=== PATIENT | female | born 1945 | race Hispanic/Latino ===

== ENCOUNTER → 2017-12-14 | Outpatient (CLI) | payer MEDICARE | LOC: OIH 15:40 | PROVIDERS: ATTEND Family Medicine | DX: S99.922A Unspecified injury of left foot, initial encounter (principal); M19.072 Primary osteoarthritis, left ankle and foot; M77.52 Other enthesopathy of left foot and ankle; X58.XXXA Exposure to other specified factors, initial encounter; Y93.89 Activity, other specified; Y92.89 Other specified places as the place of occurrence of the external cause; Y99.8 Other external cause status | CPT/HCPCS: 73620 ==

== ENCOUNTER → 2018-10-05 | Outpatient (CLI) | payer MEDICARE ==
[2018-10-05 15:41] LABS: BASOPHILS % (AUTO) 0.7 % (0.0-5.0); HEMATOCRIT 36.8 % (36-48); LYMPHOCYTES % (AUTO) 25.9 % (21.0-51.0); MEAN CORPUSCULAR HEMOGLOBIN 31.7 pg (27.0-33.0); MEAN CORPUSCULAR HGB CONC 33.3 g/dL (32.0-36.0); MEAN CORPUSCULAR VOLUME 95.2 fL (79-99); MONOCYTES % (AUTO) 7.6 % (3.0-13.0); NEUTROPHILS % (AUTO) 63.8 % (40.0-77.0); PLATELET COUNT (AUTO) 196 K/uL (130-400); RED BLOOD CELL COUNT(AUTO) 3.87 MIL/uL (4.00-5.50); RED CELL DISTRIBUTION WIDTH 14.1 % (11.0-15.5); WHITE BLOOD COUNT (AUTO) 4.5 K/uL (4.8-10.8)
== END | disposition home or self-care (01) ==
LOC: OIH 09:58
PROVIDERS: ATTEND Family Medicine
DX: R50.9 Fever, unspecified (principal); Z68.41 Body mass index [BMI] 40.0-44.9, adult
CPT/HCPCS: 36415; 71046; 85025; 86000; 86157

== ENCOUNTER 2019-07-11 17:12 | Inpatient (IN) | payer MEDICARE ==
[~2019-07-11] VITALS: Ht 172.7 cm; Wt 108.2 kg
[2019-07-11 18:40] LABS: BASOPHILS % (AUTO) 1.1 % (0.0-5.0); EOSINOPHILS % (AUTO) 2.5 % (0.0-8.0); HEMATOCRIT 35.2 % (36-48); LYMPHOCYTES % (AUTO) 25.9 % (21.0-51.0); MEAN CORPUSCULAR HEMOGLOBIN 32.3 pg (27.0-33.0); MEAN CORPUSCULAR HGB CONC 33.8 g/dL (32.0-36.0); MEAN CORPUSCULAR VOLUME 95.6 fL (79-99); MONOCYTES % (AUTO) 8.4 % (3.0-13.0); NEUTROPHILS % (AUTO) 62.1 % (40.0-77.0); NUCLEATED RED BLOOD CELLS 0.1 % (0.0-0.19); PLATELET COUNT (AUTO) 136 K/uL (130-400); RED BLOOD CELL COUNT(AUTO) 3.68 MIL/uL (4.00-5.50); RED CELL DISTRIBUTION WIDTH 15.1 % (11.0-15.5); WHITE BLOOD COUNT (AUTO) 4.9 K/uL (4.8-10.8)
[2019-07-11 18:44] LABS: CREATININE 0.9 mg/dL (0.5-1.5); POTASSIUM 4.2 mmol/L (3.5-5.1)
[2019-07-11 18:45] LABS: APPEARANCE,URINE Clear (CLEAR); BILIRUBIN,URINE Negative (NEGATIVE); COLOR,URINE Dark Yellow (YELLOW); GLUCOSE, URINE (UA) Negative (NEGATIVE); KETONES,URINE Negative (NEGATIVE); LEUKOCYTE ESTERASE ,URINE Small (NEGATIVE); NITRATE,URINE Negative (NEGATIVE); OCCULT BLOOD,URINE Negative (NEGATIVE); PROTEIN,URINE Trace mg/dL (NEGATIVE)
[2019-07-11 18:57] LABS: BACTERIA,URINE Few /HPF (None Seen); MUCUS,URINE Few LPF (None Seen); RBC,URINE 0-1 /HPF (0-1)
[2019-07-11] MEDS ORDERED: DEXAMETHASONE SOD PHOSPHATE 10MG/ML 1ML VIAL ONE (19:01)
[2019-07-11 20:00] LABS: INR 0.92 (0.85-1.15); PARTIAL THROMBOPLASTIN TIME 24.8 SEC (26.3-35.5); PROTHROMBIN TIME 9.7 SEC (9.6-11.6)
[2019-07-12] VITALS (7 sets, daily range): BP systolic 177–195; BP diastolic 76–81
[2019-07-12] MEDS ORDERED: ACETAMINOPHEN 325 MG TAB PO PRN (00:30)
[2019-07-12] MEDS ORDERED: DEXAMETHASONE 4 MG TAB PO SCH (00:45)
[2019-07-12] MEDS: CEFTRIAXONE SODIUM 1 GM IVP SCH (04:00)
[2019-07-12] MEDS ORDERED: CEFTRIAXONE SODIUM 1 GM ONE (04:14)
[2019-07-12] MEDS ORDERED: DEXAMETHASONE SOD PHOSPHATE 4 MG/ML 1ML VIAL ONE (04:14)
[2019-07-12 05:23] LABS: BASOPHILS % (AUTO) 0.2 % (0.0-5.0); HEMATOCRIT 36.6 % (36-48); LYMPHOCYTES % (AUTO) 15.8 % (21.0-51.0); MEAN CORPUSCULAR HEMOGLOBIN 32.6 pg (27.0-33.0); MEAN CORPUSCULAR HGB CONC 34.2 g/dL (32.0-36.0); MEAN CORPUSCULAR VOLUME 95.3 fL (79-99); MONOCYTES % (AUTO) 1.6 % (3.0-13.0); NEUTROPHILS % (AUTO) 82.4 % (40.0-77.0); PLATELET COUNT (AUTO) 164 K/uL (130-400); RED BLOOD CELL COUNT(AUTO) 3.84 MIL/uL (4.00-5.50); RED CELL DISTRIBUTION WIDTH 14.8 % (11.0-15.5); WHITE BLOOD COUNT (AUTO) 4.4 K/uL (4.8-10.8)
[2019-07-12 05:42] LABS: ALBUMIN 3.3 g/dL (3.5-5.0); BILIRUBIN,TOTAL 0.3 mg/dL (0.2-1.0); CREATININE 0.9 mg/dL (0.5-1.5); POTASSIUM 3.7 mmol/L (3.5-5.1); TOTAL PROTEIN, SERUM 7.1 g/dL (6.0-8.3)
[2019-07-12] MEDS ORDERED: LISI-613 PO (06:27)
[2019-07-12] MEDS ORDERED: PARO30TA60 PO (06:27)
[2019-07-12] MEDS ORDERED: SORA200T PO (06:27)
[2019-07-12] MEDS ORDERED: DIPH25 PO (06:27)
[2019-07-12] MEDS ORDERED: ALLO100T PO (06:27)
[2019-07-12] MEDS ORDERED: BIOT10004 PO (06:27)
[2019-07-12] MEDS ORDERED: VITA1TAB39 PO (06:27)
[2019-07-12] MEDS ORDERED: AEC81 PO (06:27)
[2019-07-12] MEDS ORDERED: LEVO150T6 PO (06:27)
[2019-07-12] MEDS ORDERED: CYCL30DR OP (06:27)
[2019-07-12] MEDS ORDERED: d3 (06:27)
[2019-07-12] MEDS ORDERED: CARV3.12 PO (06:27)
[2019-07-12] MEDS ORDERED: ALIR75PE SQ (06:30)
[2019-07-12] MEDS: INSULIN HUMULIN R 100 UNIT/ML 3ML SQ SCH ×4 (06:55→20:36)
--- NOTE | 2019-07-12 07:45 | NUR ---
ALERT AND ORIENTED AT THIS TIME WITH NO ACUTE DISTRESS ON ROOM AIR, DENIES PAIN WITH ASSESSMENT. CURRENTLY NPO FOR PENDING MRI, NEW IV ACCESS WAS OBTAINED FOR PROCEDURE, TOLERATED IT WELL. PATIENT REPORTED FORGETFULNESS.
[2019-07-12] MEDS: DEXAMETHASONE SOD PHOSPHATE 4 MG/ML 1ML VIAL IVP SCH ×3 (07:47→21:50)
[2019-07-12] MEDS ORDERED: GADODIAMIDE 10 MMOL/20 ML VIAL IV ONE (08:09)
--- NOTE | 2019-07-12 11:26 | NUR ---
DR CLAYTON ROUNDED ON THE PATIENT AND DISCUSSED TREATMENT PLAN WITH HER AND HER SISTER AT THE BEDSIDE. NEW ORDER RECEIVED FOR ONCOLOGY AND PULMO CONSULT.
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
--- NOTE | 2019-07-12 20:17 | NUR ---
GROUP CARE WORKER Paged GROUP CARE WORKER MOTOR RACER,pt c/o of heartburn.Bp 182/79.
--- NOTE | 2019-07-12 20:37 | NUR ---
THIRD RAIL INSTALLER Paged LAURENCE SANDOVAL again,no call back.
--- NOTE | 2019-07-12 21:39 | NUR ---
CALLBACK Merlyn [facility] [employer] called back.Updated on pts status.
[2019-07-12] MEDS: ACETAMINOPHEN 325 MG TAB PO PRN (22:59)
[2019-07-12] MEDS: HYDRALAZINE HCL 20 MG/ML VIAL IM PRN (23:04)
--- NOTE | 2019-07-12 23:06 | NUR ---
HYDRALAZINE HYdralazine given for bp 187/81.
[2019-07-13] VITALS (7 sets, daily range): BP systolic 147–181; BP diastolic 67–77
[2019-07-13] MEDS: CEFTRIAXONE SODIUM 1 GM IVP SCH (04:00)
--- NOTE | 2019-07-13 04:00 | NUR ---
ACTIVITY Pt up ad abhijeet with a cane,jaspreet well.
[2019-07-13 05:10] LABS: HEMATOCRIT 36.3 % (36-48); MEAN CORPUSCULAR HEMOGLOBIN 32.4 pg (27.0-33.0); MEAN CORPUSCULAR HGB CONC 34.1 g/dL (32.0-36.0); MEAN CORPUSCULAR VOLUME 95.2 fL (79-99); PLATELET COUNT (AUTO) 203 K/uL (130-400); RED BLOOD CELL COUNT(AUTO) 3.81 MIL/uL (4.00-5.50); RED CELL DISTRIBUTION WIDTH 14.6 % (11.0-15.5); WHITE BLOOD COUNT (AUTO) 8.6 K/uL (4.8-10.8)
[2019-07-13 05:18] LABS: CREATININE 0.9 mg/dL (0.5-1.5); POTASSIUM 3.5 mmol/L (3.5-5.1)
[2019-07-13] MEDS: INSULIN HUMULIN R 100 UNIT/ML 3ML SQ SCH ×4 (06:16→21:10)
[2019-07-13] MEDS: DEXAMETHASONE SOD PHOSPHATE 4 MG/ML 1ML VIAL IVP SCH ×3 (06:17→21:06)
[2019-07-13] MEDS: LEVOTHYROXINE 150 MCG TABLET PO SCH (06:30)
--- NOTE | 2019-07-13 06:54 | NUR ---
SYNTHYROID Synthyroid not yet available,med request from pharmacy.
--- NOTE | 2019-07-13 08:18 | NUR ---
LATE ENTRY FOR 07/12/[address] Batres ROUNDED ON THE PATIENT AND MD WAS MADE AWARE OF ELEVATED BP 180'S. SHE SAID THAT SHE WILL CONSULT DR NAQVI FOR BRAIN MASS AND BP PARAMETERS.
[2019-07-13] MEDS: FAMOTIDINE/PF 20 MG/2 ML VIAL IV SCH ×2 (08:39→21:06)
[2019-07-13] MEDS: CARVEDILOL 3.125 MG TABLET PO SCH ×2 (08:41→21:08)
[2019-07-13 10:12] LABS: ABG BASE EXCESS -2.3 mmol/L (-2.0-3.0); ABG HCO3 20.6 mmol/L (21.0-28.0); ABG OXYGEN SATURATION 96.5 % (95.0-99.0); ABG PCO2 31 mmHg (32-45)
--- NOTE | 2019-07-13 12:45 | NUR ---
DR CLAYTON CAME IN AND DISCUSSED THE SURGICAL PLAN WITH THE PATIENT AND HER FAMILY. ORDERS WERE GIVEN FOR SURGERY TOMORROW.
[2019-07-13] MEDS ORDERED: COMPOUND IV MISC 1 EACH IVSOLN MISC PRN (13:00)
[2019-07-13] MEDS: LEVETIRACETAM 1,000 MG in SODIUM CHLORIDE 0.9% 100 ML IV SCH (13:19)
--- NOTE | 2019-07-13 15:00 | NUR ---
SUMMARY OF DC PLANNING PATIENT REQUESTING MPOA- DONE PER MIRZA, PATIENT ADVOCATE. PT REQUESTING DC PLANNING POST OP- [facility] CHOICE/[facility] DONE, ORDER REC'D FOR PRE OP EVAL- REP HERE, FACE SHEET AND CLINICAL SENT BY REP, PRIMARY RN AWARE, PATIENT MORE PEACEFUL NOW ABOUT THE DC PLANNING PROCESS PT LOST PHONE YESTERDAY- PER KAILEY PHONE FOUND IN [place], MAY BE PATIENTS, WILL FOLLOW SISTER LUC/PATIENT ASKING ABOUT DURABLE POWER OF NETWORKING SPECIALIST,WILL DISCUSS WITH BROTHER STEFANY WHEN ARRIVES, PATIENT FOR SURGERY IN AM, ADVISED BY CM THAT IS MORE COMPLICATED PROCESS, CM DO NOT ASSIST WITH THAT. PLS FOLLOW UP WITHGRAEMEUR NETWORKING SPECIALIST. VERBALIZED UNDERSTANDING Addendum: 07/13/19 at 1819 by JOHAN LAROSE RN CM Amended: Links added.
[2019-07-13] MEDS ORDERED: IOHEXOL-350 75 ML VIAL IV ONE (15:14)
--- NOTE | 2019-07-13 18:30 | NUR ---
CONSENT OBTAINED FOR SCHEDULED PROCEDURE AND WAS PLACED IN THE CHART.
[2019-07-13] MEDS: B COMPLEX WITH VITAMIN C PO SCH (21:00)
[2019-07-13] MEDS: LISINOPRIL 20 MG TABLET PO SCH (21:08)
[2019-07-14] VITALS (26 sets, daily range): BP systolic 101–178; BP diastolic 35–88
[2019-07-14] MEDS: LEVETIRACETAM 1,000 MG in SODIUM CHLORIDE 0.9% 100 ML IV SCH ×2 (01:17→14:32)
[2019-07-14] MEDS: HYDRALAZINE HCL 20 MG/ML VIAL IM PRN (01:18)
[2019-07-14] MEDS: CEFTRIAXONE SODIUM 1 GM IVP SCH (04:31)
[2019-07-14 05:27] LABS: HEMATOCRIT 37.6 % (36-48); MEAN CORPUSCULAR HEMOGLOBIN 32.7 pg (27.0-33.0); MEAN CORPUSCULAR HGB CONC 34.4 g/dL (32.0-36.0); MEAN CORPUSCULAR VOLUME 95.2 fL (79-99); PLATELET COUNT (AUTO) 193 K/uL (130-400); RED BLOOD CELL COUNT(AUTO) 3.95 MIL/uL (4.00-5.50); WHITE BLOOD COUNT (AUTO) 10.9 K/uL (4.8-10.8)
[2019-07-14 05:35] LABS: INR 0.95 (0.85-1.15); PARTIAL THROMBOPLASTIN TIME 23.2 SEC (26.3-35.5)
[2019-07-14 05:44] LABS: ALBUMIN 3.3 g/dL (3.5-5.0); BILIRUBIN,TOTAL 0.2 mg/dL (0.2-1.0); CREATININE 1.1 mg/dL (0.5-1.5); MAGNESIUM 1.8 mg/dL (1.80-2.40); POTASSIUM 3.8 mmol/L (3.5-5.1); TOTAL PROTEIN, SERUM 6.7 g/dL (6.0-8.3)
[2019-07-14] MEDS: LEVOTHYROXINE 150 MCG TABLET PO SCH (06:30)
[2019-07-14] MEDS: INSULIN HUMULIN R 100 UNIT/ML 3ML SQ SCH ×4 (06:37→21:00)
[2019-07-14] MEDS: DEXAMETHASONE SOD PHOSPHATE 4 MG/ML 1ML VIAL IVP SCH ×3 (06:37→21:37)
[2019-07-14] MEDS: CEFAZOLIN SODIUM 1 GM VIAL IVP ONE ×2 (08:00→11:15)
[2019-07-14] MEDS: FAMOTIDINE/PF 20 MG/2 ML VIAL IV SCH ×2 (09:00→21:37)
[2019-07-14] MEDS: CARVEDILOL 3.125 MG TABLET PO SCH ×2 (09:00→21:37)
[2019-07-14] MEDS ORDERED: POTASSIUM CHLORIDE 20 MEQ ERTAB PO PRN (09:30)
[2019-07-14] MEDS ORDERED: POTASSIUM CHLORIDE 10% ELIXIR 20 MEQ/15 ML UDCUP PO PRN (09:30)
[2019-07-14] MEDS ORDERED: SODIUM CHLORIDE 0.9% 1000ML 1,000 ML IV ONE (10:04)
--- NOTE | 2019-07-14 10:15 | NUR ---
TAKEN TO OR VIA BED IN STABLE CONDITION FOR SCHEDULED SURGERY. BELONGINGS ARE TAKEN BY FAMILY.
--- NOTE | 2019-07-14 10:16 | NUR ---
RECEIVED IN BED WITH EYES OPEN, PATIENT IS PLEASANT AND IN GOOD SPIRIT. DENIES PAIN WHEN ASKED; ON ROOM AIR WITH NO ACUTE RESPIRATORY DISTRESS PRESENT. EMOTIONAL/SPIRITUAL SUPPORT PROVIDED. AWARE OF THE SURGICAL PLAN SHE REPORTS THAT SHE IS READY.
[2019-07-14] MEDS ORDERED: CEFAZOLIN SODIUM 1 GM VIAL ONE (10:22)
[2019-07-14] MEDS ORDERED: DEXAMETHASONE SOD PHOSPHATE 10MG/ML 1ML VIAL ONE (10:34)
[2019-07-14] MEDS ORDERED: LIDOCAINE PF 2% 5ML ABBOJECT ONE (10:34)
[2019-07-14] MEDS ORDERED: PROPOFOL 10 MG/ML 20ML VIAL IV ONE (10:34)
[2019-07-14] MEDS ORDERED: MIDAZOLAM HCL 1 MG/ML 2ML VIAL ONE (10:34)
[2019-07-14] MEDS ORDERED: SUCCINYLCHOLINE 200MG/10ML SYR ONE (10:34)
[2019-07-14] MEDS ORDERED: ROCURONIUM 10MG/1ML SYR 10 MG/ML ML ONE (10:35)
[2019-07-14] MEDS ORDERED: FENTANYL CITRATE PF 50 MCG/1 ML 2ML VIAL ONE (10:35)
[2019-07-14] MEDS ORDERED: BACITRACIN 50,000 UNIT VIAL ONE ×2 (10:50→11:49)
[2019-07-14] MEDS ORDERED: THROMBIN-JMI 20000 UNIT KIT TP ONE (10:50)
[2019-07-14] MEDS ORDERED: MANNITOL 20% 500ML BAG 500 ML IV ONE (11:10)
[2019-07-14] MEDS: BUPIVACAINE/EPI/PF 0.25% 30ML VIAL IJ SCH ×2 (11:15→11:30)
[2019-07-14] MEDS ORDERED: PHENYLEPHRINE HCL 10 MG/ML 1ML VIAL IV ONE ×2 (11:15→12:55)
[2019-07-14] MEDS ORDERED: NEOSTIGMINE 5MG/5ML SYR IV ONE (12:55)
[2019-07-14] MEDS ORDERED: GLYCOPYRROLATE 1 MG/5 ML SYRINGE ONE (12:55)
[2019-07-14] MEDS ORDERED: ONDANSETRON HCL 4 MG/2 ML VIAL ONE (13:14)
[2019-07-14] MEDS ORDERED: KETOROLAC TROMETHAMINE 30MG/ML ONE (13:14)
[2019-07-14] MEDS ORDERED: MAGNESIUM 2GM PREMIX 50ML 50 ML IV PRN (13:30)
[2019-07-14] MEDS ORDERED: HYDRALAZINE HCL 20 MG/ML VIAL ONE (13:43)
--- NOTE | 2019-07-14 14:00 | NUR ---
ADMITTED FROM OR, S/P CRANIOTOMY, DRESSING TO RT OCCIPITAL AREA, DRY AND INTACT, AAOX3, UNLABORED RESPIRATIONS NOTED, O2 AT 2LITERS VIA NASAL CANNULA, O2 SAT AT 95%. HEMOVAC IN PLACE TO RT OCCIPITAL AREA, MINIMAL SANGUINOUS DRAINAGE NOTED TO COLLECTION CONTAINER, PARTIALLY COMPRESSED, PER DR CLAYTON.
[2019-07-14] MEDS ORDERED: POTASSIUM CHLORIDE 20MEQ/100ML 100 ML IV PRN (16:45)
[2019-07-14] MEDS ORDERED: LIDOCAINE HCL-MPF 1% 2ML VIAL IV PRN (16:45)
--- NOTE | 2019-07-14 20:00 | NUR ---
dressing to craniotomy site dry intact with hemovac in place. pt awake alert oriented. denies pain or discomfort. pt able to follow commands well.
[2019-07-14] MEDS: B COMPLEX WITH VITAMIN C PO SCH (21:00)
[2019-07-14] MEDS: LISINOPRIL 20 MG TABLET PO SCH (21:37)
[2019-07-15] VITALS (18 sets, daily range): BP systolic 106–166; BP diastolic 46–99
--- NOTE | 2019-07-15 | NUR ---
pt resting well. no new problems, pt with no voiced complaints.
[2019-07-15] MEDS: LEVETIRACETAM 1,000 MG in SODIUM CHLORIDE 0.9% 100 ML IV SCH ×3 (01:02→23:59)
[2019-07-15] MEDS: CEFTRIAXONE SODIUM 1 GM IVP SCH (03:49)
[2019-07-15 04:05] LABS: HEMATOCRIT 38.3 % (36-48); MEAN CORPUSCULAR HEMOGLOBIN 32.2 pg (27.0-33.0); MEAN CORPUSCULAR HGB CONC 33.6 g/dL (32.0-36.0); PLATELET COUNT (AUTO) 230 K/uL (130-400); RED BLOOD CELL COUNT(AUTO) 3.99 MIL/uL (4.00-5.50); RED CELL DISTRIBUTION WIDTH 15.4 % (11.0-15.5); WHITE BLOOD COUNT (AUTO) 13.6 K/uL (4.8-10.8)
[2019-07-15 04:25] LABS: MAGNESIUM 2.6 mg/dL (1.80-2.40); PHOSPHORUS 3.7 mg/dL (2.5-4.9); POTASSIUM 4.1 mmol/L (3.5-5.1)
[2019-07-15] MEDS: DEXAMETHASONE SOD PHOSPHATE 4 MG/ML 1ML VIAL IVP SCH ×3 (06:20→21:00)
[2019-07-15] MEDS: HYDRALAZINE HCL 20 MG/ML VIAL IM PRN (06:21)
[2019-07-15] MEDS: INSULIN HUMULIN R 100 UNIT/ML 3ML SQ SCH ×4 (06:29→20:58)
[2019-07-15] MEDS: LEVOTHYROXINE 150 MCG TABLET PO SCH (06:46)
[2019-07-15] MEDS: FAMOTIDINE/PF 20 MG/2 ML VIAL IV SCH ×2 (09:21→20:58)
[2019-07-15] MEDS: CARVEDILOL 3.125 MG TABLET PO SCH ×2 (09:21→20:59)
--- NOTE | 2019-07-15 10:00 | NUR ---
DYSPHAGIA EVAL COMPLETED. -S/S OF ASPIRATION. RECOMMEND REGULAR, THIN LIQUIDS; PILLS WHOLE WITH LIQUIDS. Addendum: 07/15/19 at 1144 by KOBI MCDONALD, [facility] Amended: Links added.
--- NOTE | 2019-07-15 11:00 | NUR ---
cm note met with patient and and brother, discussed dc plan , pt agreeable to acute rehab, and want [facility] rehab, referral faxed to [facility], pendin approval
--- NOTE | 2019-07-15 11:37 | NUR ---
COGNITIVE LINGUISTIC EVAL COMPLETED. WITHIN FUNCTIONAL LIMITS. Pt CURRENTLY AT BASELINE. Addendum: 07/15/19 at 1138 by KOBI MCDONALD, [facility] Amended: Links added.
[2019-07-15] MEDS ORDERED: DEXAMETHASONE SOD PHOSPHATE 4 MG/ML 1ML VIAL ONE (12:54)
--- NOTE | 2019-07-15 17:00 | NUR ---
cm note received call from freedom richard at [facility], states pt will probably have a bed ready for her thursday , states he will call in am with update.
[2019-07-15] MEDS: B COMPLEX WITH VITAMIN C PO SCH (19:56)
[2019-07-15] MEDS: LISINOPRIL 20 MG TABLET PO SCH (20:59)
[2019-07-16] VITALS: BP 177/70
[2019-07-16] MEDS: HYDRALAZINE HCL 20 MG/ML VIAL IM PRN
[2019-07-16 04:00] VITALS: BP 126/52
[2019-07-16] MEDS: LEVOTHYROXINE 150 MCG TABLET PO SCH (05:51)
[2019-07-16] MEDS: DEXAMETHASONE SOD PHOSPHATE 4 MG/ML 1ML VIAL IVP SCH (05:52)
[2019-07-16] MEDS: INSULIN HUMULIN R 100 UNIT/ML 3ML SQ SCH ×2 (06:01→11:30)
[2019-07-16 07:57] VITALS: BP 135/77
[2019-07-16] MEDS: FAMOTIDINE/PF 20 MG/2 ML VIAL IV SCH (08:38)
[2019-07-16] MEDS: DEXAMETHASONE 0.5 MG TAB PO SCH ×2 (08:38→12:42)
[2019-07-16] MEDS: CARVEDILOL 3.125 MG TABLET PO SCH (08:39)
[2019-07-16] MEDS: ACETAMINOPHEN 325 MG TAB PO PRN ×2 (08:46→12:51)
[2019-07-16 11:50] VITALS: BP 154/68
[2019-07-16] MEDS: LEVETIRACETAM 1,000 MG in SODIUM CHLORIDE 0.9% 100 ML IV SCH (12:40)
[2019-07-16] MEDS ORDERED: AMLO5TAB9 PO (12:55)
--- NOTE | 2019-07-16 15:25 | NUR ---
DISCHARGE DISCHARGE TEACHING DONE WITH PATIENT USING TEACHBACK METHOD, VERBALIZED UNDERSTANDING. NO NOTED SOB OR DISTRESS. DRESSING TO RIGHT SIDE OF FOREHEAD RIGHT AND INTACT. NO NEW PRESCRIPTIONS. DRESSING CHANGES TEACHING DONE WITH PATIENT, VERBALIZED UNDERSTANDING. IV REMOVED, CATH TIP INTACT. REPORT CALLED TO [facility]. PENDING SECOND TIME WORKER RIDE TO TRANSFER OUT VIA PRIVATE VEHICLE. BROTHER ON HIS WAY TO SECOND TIME WORKER PATIENT.
[2019-07-17] MEDS ORDERED: AMLODIPINE BESYLATE 5 MG TAB PO SCH (09:00)
[2019-07-19] MEDS ORDERED: ALIROCUMAB 75 MG SQ SCH (09:00)
== END 2019-07-16 16:04 | DRG 25 ==
LOC: EDH 17:12 → EDHIP 20:28 → 3BH 07-12 06:24 → 2CV 07-14 12:14 → 2CH 07-14 13:07 → 4BH 07-15 17:34
PROVIDERS: ADMIT Internal Medicine; ATTEND Internal Medicine
PROC: 00B00ZZ Excision of Brain, Open Approach (ICD-10-PCS; principal; 2019-07-14 11:30)
DX: D49.6 Neoplasm of unspecified behavior of brain (principal); G93.6 Cerebral edema; C78.00 Secondary malignant neoplasm of unspecified lung; C73 Malignant neoplasm of thyroid gland; E66.01 Morbid (severe) obesity due to excess calories; Z68.36 Body mass index [BMI] 36.0-36.9, adult; E78.2 Mixed hyperlipidemia; F41.9 Anxiety disorder, unspecified; E11.51 Type 2 diabetes mellitus with diabetic peripheral angiopathy without gangrene; E03.9 Hypothyroidism, unspecified; I11.9 Hypertensive heart disease without heart failure; M10.9 Gout, unspecified; Z72.0 Tobacco use; Z85.850 Personal history of malignant neoplasm of thyroid; Y92.89 Other specified places as the place of occurrence of the external cause; Y92.410 Unspecified street and highway as the place of occurrence of the external cause; V89.2XXA Person injured in unspecified motor-vehicle accident, traffic, initial encounter; Z92.21 Personal history of antineoplastic chemotherapy; Z91.018 Allergy to other foods
CPT/HCPCS: 36415; 36600; 70450; 70553; 71045; 71270; 76998; 80048; 80053; 81001; 82803; 82948; 83735; 84100; 85025; 85027; 85610; 85730; 87088; 88307; 92522; 92610; 94760; 97039; 99291; A4344; A9579; C1713; G0378; J0330; J0360; J0690; J0696; J1100; J1815; J1885; J1953; J2001; J2250; J2370; J2405; J2704; J2710; J3010; J3475; J3480; J3490; J7030; J7120; J8540; Q9967

== ENCOUNTER → 2019-08-08 | Outpatient (CLI) | payer MEDICARE ==
[~2019-08-08] MED LIST: AEC81 PO; ALIR75PE SQ; ALLO100T PO; AMLO5TAB9 PO; BIOT10004 PO; CARV3.12 PO; CYCL30DR OP; DIPH25 PO; LEVO150T6 PO; LISI-613 PO; PARO30TA60 PO; VITA1TAB39 PO
== END | disposition home or self-care (01) ==
LOC: SHCH 11:24
PROVIDERS: ATTEND Internal Medicine Cardiovascular Disease
DX: I65.23 Occlusion and stenosis of bilateral carotid arteries (principal)
CPT/HCPCS: 93880

== ENCOUNTER 2019-08-22 13:48 | Inpatient (IN) | payer MEDICARE ==
[~2019-08-22] VITALS: Ht 172.7 cm; Wt 109.9 kg
[2019-08-22 14:50] LABS: BASOPHILS % (AUTO) 0.3 % (0.0-5.0); EOSINOPHILS % (AUTO) 0.9 % (0.0-8.0); LYMPHOCYTES % (AUTO) 14.7 % (21.0-51.0); MEAN CORPUSCULAR HEMOGLOBIN 32.5 pg (27.0-33.0); MEAN CORPUSCULAR VOLUME 95.6 fL (79-99); MONOCYTES % (AUTO) 9.9 % (3.0-13.0); NEUTROPHILS % (AUTO) 74.2 % (40.0-77.0); NUCLEATED RED BLOOD CELLS 0.1 % (0.0-0.19); PLATELET COUNT (AUTO) 210 K/uL (130-400); RED BLOOD CELL COUNT(AUTO) 3.46 MIL/uL (4.00-5.50); RED CELL DISTRIBUTION WIDTH 14.1 % (11.0-15.5); WHITE BLOOD COUNT (AUTO) 5.4 K/uL (4.8-10.8)
[2019-08-22 15:04] LABS: CREATININE 0.9 mg/dL (0.5-1.5); POTASSIUM 3.9 mmol/L (3.5-5.1)
[2019-08-22 15:12] LABS: ALBUMIN 3.3 g/dL (3.5-5.0); BILIRUBIN,TOTAL 0.3 mg/dL (0.2-1.0)
[2019-08-22 15:20] LABS: INR 0.96 (0.85-1.15); PARTIAL THROMBOPLASTIN TIME 23.3 SEC (26.3-35.5); PROTHROMBIN TIME 9.9 SEC (9.6-11.6)
[2019-08-22 15:52] LABS: B-TYPE NATRIURETIC PEPTIDE 37 pg/mL (0-100)
[2019-08-22] MEDS ORDERED: DEXAMETHASONE SOD PHOSPHATE 10MG/ML 1ML VIAL ONE (16:27)
[2019-08-22] MEDS ORDERED: ONDANSETRON HCL 4 MG/2 ML VIAL ONE (16:27)
[2019-08-22] MEDS ORDERED: FOSPHENYTOIN SODIUM 500 MG/10ML VIAL IJ ONE (16:28)
[2019-08-22] MEDS ORDERED: SODIUM CHLORIDE 0.9% 100 ML IV ONE (16:28)
[2019-08-22] MEDS ORDERED: GADODIAMIDE 10 MMOL/20 ML VIAL IV ONE (16:35)
[2019-08-22] MEDS ORDERED: SODIUM CHLORIDE 0.9% 10 ML VIAL IVP PRN (17:45)
[2019-08-22 18:20] VITALS: BP 196/81
[2019-08-22 19:15] VITALS: BP 162/77
[2019-08-22] MEDS ORDERED: ESOM20CA31 PO (20:28)
[2019-08-22] MEDS ORDERED: CHOL500062 PO (20:28)
[2019-08-22] MEDS ORDERED: SORA200T PO ×2 (20:28)
[2019-08-22] MEDS ORDERED: LEVE1000 PO (20:28)
[2019-08-22 20:44] LABS: APPEARANCE,URINE Clear (CLEAR); BILIRUBIN,URINE Negative (NEGATIVE); COLOR,URINE Yellow (YELLOW); GLUCOSE, URINE (UA) Negative (NEGATIVE); KETONES,URINE Trace mg/dL (NEGATIVE); LEUKOCYTE ESTERASE ,URINE Negative (NEGATIVE); NITRATE,URINE Negative (NEGATIVE); OCCULT BLOOD,URINE Negative (NEGATIVE); PH,URINE 7.5 (5.0-8.0); PROTEIN,URINE Negative (NEGATIVE)
[2019-08-22] MEDS: PHENYTOIN SODIUM 100 MG ERCAP PO SCH (21:41)
[2019-08-22] MEDS: INSULIN R PO SS1 SQ SCH (21:48)
[2019-08-22] MEDS: DEXAMETHASONE SOD PHOSPHATE 4 MG/ML 1ML VIAL IVP SCH (22:06)
[2019-08-22 23:17] VITALS: BP 188/89
[2019-08-22] MEDS ORDERED: LISINOPRIL 20 MG TABLET ONE (23:48)
[2019-08-22] MEDS ORDERED: CARVEDILOL 3.125 MG TABLET PO ONE (23:48)
[2019-08-23 03:01] VITALS: BP 150/80
--- NOTE | 2019-08-23 03:20 | NUR ---
RECEIVED REPORT RECEIVED FROM LUIS TOM. TOOK OVER CARE OF PT FROM THIS TIME. PT IS FAIRLY ASLEEP. NO DISTRESS NOTED. KEPT RESTED AND COMFORTABLE.
[2019-08-23] MEDS: DEXAMETHASONE SOD PHOSPHATE 4 MG/ML 1ML VIAL IVP SCH (03:57)
[2019-08-23 05:35] LABS: HEMATOCRIT 35.2 % (36-48); MEAN CORPUSCULAR HEMOGLOBIN 32.8 pg (27.0-33.0); MEAN CORPUSCULAR HGB CONC 34.4 g/dL (32.0-36.0); MEAN CORPUSCULAR VOLUME 95.4 fL (79-99); PLATELET COUNT (AUTO) 222 K/uL (130-400); RED BLOOD CELL COUNT(AUTO) 3.69 MIL/uL (4.00-5.50); RED CELL DISTRIBUTION WIDTH 13.5 % (11.0-15.5); WHITE BLOOD COUNT (AUTO) 5.8 K/uL (4.8-10.8)
[2019-08-23 05:50] LABS: ALBUMIN 3.2 g/dL (3.5-5.0); BILIRUBIN,TOTAL 0.3 mg/dL (0.2-1.0); CREATININE 0.9 mg/dL (0.5-1.5); POTASSIUM 4.1 mmol/L (3.5-5.1); TOTAL PROTEIN, SERUM 7.1 g/dL (6.0-8.3)
[2019-08-23] MEDS: INSULIN R PO SS1 SQ SCH ×4 (05:58→20:39)
--- NOTE | 2019-08-23 06:11 | NUR ---
ROUNDS PT RESTING WELL, NO DISTRESS NOTED. NO CONCERNS VERBALIZED. KEPT COMFORTABLE. FOR MORE CARE.
--- NOTE | 2019-08-23 06:47 | NUR ---
MD DR POLANCO IN TO SEE PT. NEW ORDERS GIVEN, PLEASE REFER TO CPOE.
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
[2019-08-23 08:00] VITALS: BP 145/69
[2019-08-23] MEDS: **HM** VIT D3 5000 UNITS PO SCH (09:00)
--- NOTE | 2019-08-23 09:00 | NUR ---
NOTE DR FORREST MALDONADO IN A CONSULT. HE HAD PERFORMED CRANIOTOMY ON PATIENT IN JUL 14 2019. HE ORDERED TO CHANGE DECADRON TO PO 2MG EVERY [address] TO CONSULT [address] RICHARD. THERE IS AN ORDER FOR JOSE MANUEL TO COME SEE WELL. HE REVIEWED MRI AND CT SCANS. NO OTHER ORDERS GIVEN.
[2019-08-23] MEDS: CARVEDILOL 3.125 MG TABLET PO SCH ×2 (10:46→20:38)
[2019-08-23] MEDS: LEVOTHYROXINE 150 MCG TABLET PO SCH (10:47)
[2019-08-23] MEDS: PHENYTOIN SODIUM 100 MG ERCAP PO SCH ×3 (10:47→20:38)
[2019-08-23] MEDS: ASPIRIN 81 MG EC TAB PO SCH (10:47)
[2019-08-23] MEDS: LEVETIRACETAM 500 MG TABLET PO SCH ×2 (10:47→20:39)
[2019-08-23] MEDS: PANTOPRAZOLE SODIUM 40 MG TABLET.DR PO SCH (10:47)
[2019-08-23] MEDS: AMLODIPINE BESYLATE 5 MG TAB PO SCH (10:49)
--- NOTE | 2019-08-23 11:00 | NUR ---
INITIAL MET W PATIENT AND SISTER AT BEDSIDE PT KNOWN TO THIS CM FROM PREVIOUS ADMISSION. LIVES RUDY, NOW POST DX THE SIS TER IS CHECKING ON HER THROUGH THE DAY, WAS AMBULATORY AND CONTINENT PRIOR TO THE BRAIN SURGERY BUT NOW NEEDS A WLAKER AND A CANE AND IS MORE FORGETFUL, NOT TAKING MEDS LIKE SHE SHOULD DISCUSSED PLANS, FMAILY STATES THERE WAS A PROBLEM GETTING HTE MRI SCHEDULED- "INSURANCE WOULD NOT PAY' PT CALLED HER SUPPLEMENTAL INSURANCE AND MISUNDERSTOOD WHAT WAS TOLD TO HER- PRIMRY IS MEDICARE DISCHARGE DISPOSTION IS GRIM- NEED MPOA/DPOA AND PT NEEDS TO ACCEPT THAT TIME IS OF THE ESSENCE IN DECISION MAKING Addendum: 08/24/19 at 1510 by JOHAN LAROSE RN Amended: Links added.
[2019-08-23 11:29] VITALS: BP 139/56
[2019-08-23] MEDS: DEXAMETHASONE 4 MG TAB PO SCH ×2 (14:27→18:42)
--- NOTE | 2019-08-23 14:45 | NUR ---
PALLIATIVE CARE Sw and Kylee charge nurse met with pt and discussed palliative care consult. Pt is agreeable to meeting with Dr Huang and knowing what her options are down the road. Pt requesting meeting in am so brother Jamshid who MPOA can be present. Dr Huang notified and waiting on time he is available. Nurse Pastor aware of above..
[2019-08-23 16:00] VITALS: BP 134/57
--- NOTE | 2019-08-23 16:17 | NUR ---
Dr Huang at 8am Sw spoke to Dr Huang who can meet with pt and brother tomorrow at 8am. Sw spoke to pt and brother who will be here at that time.
[2019-08-23 19:15] VITALS: BP 128/55
[2019-08-23] MEDS: LISINOPRIL 20 MG TABLET PO SCH (20:38)
[2019-08-23] MEDS: ALLOPURINOL 100 MG TABLET PO SCH (20:38)
[2019-08-23] MEDS: PAROXETINE HCL 20 MG TABLET PO SCH (20:38)
[2019-08-23 23:03] VITALS: BP 146/68
[2019-08-24] MEDS: DEXAMETHASONE 4 MG TAB PO SCH ×4 (00:01→17:09)
[2019-08-24 03:24] VITALS: BP 161/60
[2019-08-24] MEDS: INSULIN R PO SS1 SQ SCH ×4 (06:32→21:00)
[2019-08-24 08:07] VITALS: BP 158/76
[2019-08-24] MEDS: **HM** VIT D3 5000 UNITS PO SCH (09:00)
--- NOTE | 2019-08-24 10:20 | NUR ---
Palliative Care Sw present when Dr Huang met with pt and her brother and sister. Pt alert and oriented and able to explain to Dr Huang medical hx. Dr Huang discussed current condition, showed pt and family results from MRI and explained options and strongly recommended to pt that she get her affairs in order and begin planning head, because she can not do treatment unless she has help, and is complaint with treatment. Family reports pt is very non compliant, is difficult to get her up and dressed to keep appts. "Do not start treatment unless you are all in". "You must have transportation in place and assistance with ADLS so that you can be ready when transportation gets there". Dr Huagn stressed the importance of her not missing any treatments once she starts them. "You are an adult and can make your own decisions, but there will be consequences that can make things way worse for you". Pt voiced understanding. Dr Huang also strongly recommended pt look into hiring help at home or moving into an assisted living facility where there is someone 25/05. Brother states pt refusing to complete POA. Dr Huang encouraged pt to complete POA and Will, nadeem while she is still able to, because she won't be able to if she waits till she needs it". Dr Huang explained hospice services as well, should treatment not work. Dr Huang educated on DNR , OOHDNR and DNI and informed pt that neither would be beneficial to pt with stage 4 cancer. Pt and family very appreciative of information and will move forward with treatment and begin planning for future care for pt.
[2019-08-24] MEDS: AMLODIPINE BESYLATE 5 MG TAB PO SCH (10:53)
[2019-08-24] MEDS: ASPIRIN 81 MG EC TAB PO SCH (10:53)
[2019-08-24] MEDS: NYSTATIN 100000 UNIT/ML 5ML UDCUP PO SCH ×4 (10:53→20:28)
[2019-08-24] MEDS: PANTOPRAZOLE SODIUM 40 MG TABLET.DR PO SCH (10:53)
[2019-08-24] MEDS: LEVOTHYROXINE 150 MCG TABLET PO SCH (10:53)
[2019-08-24] MEDS: LEVETIRACETAM 500 MG TABLET PO SCH ×2 (10:54→20:26)
[2019-08-24] MEDS: CARVEDILOL 3.125 MG TABLET PO SCH ×2 (10:54→20:28)
[2019-08-24] MEDS: PHENYTOIN SODIUM 100 MG ERCAP PO SCH ×3 (11:00→20:26)
[2019-08-24 11:16] VITALS: BP 129/61
[2019-08-24 16:11] VITALS: BP 130/56
[2019-08-24 20:00] VITALS: BP 132/55
[2019-08-24] MEDS: ALLOPURINOL 100 MG TABLET PO SCH (20:27)
[2019-08-24] MEDS: PAROXETINE HCL 20 MG TABLET PO SCH (20:27)
[2019-08-24] MEDS: LISINOPRIL 20 MG TABLET PO SCH (20:28)
[2019-08-24 23:21] VITALS: BP 125/56
[2019-08-25] MEDS: DEXAMETHASONE 4 MG TAB PO SCH ×4 (00:54→17:11)
[2019-08-25 03:46] VITALS: BP 136/63
[2019-08-25] MEDS: INSULIN R PO SS1 SQ SCH ×4 (05:50→21:00)
[2019-08-25 07:28] VITALS: BP 133/71
[2019-08-25] MEDS: **HM** VIT D3 5000 UNITS PO SCH (09:00)
[2019-08-25] MEDS: NYSTATIN 100000 UNIT/ML 5ML UDCUP PO SCH ×4 (09:45→20:58)
[2019-08-25] MEDS: PHENYTOIN SODIUM 100 MG ERCAP PO SCH ×3 (09:45→20:58)
[2019-08-25] MEDS: LEVETIRACETAM 500 MG TABLET PO SCH ×2 (09:45→20:57)
[2019-08-25] MEDS: PANTOPRAZOLE SODIUM 40 MG TABLET.DR PO SCH (09:46)
[2019-08-25] MEDS: CARVEDILOL 3.125 MG TABLET PO SCH ×2 (09:46→20:58)
[2019-08-25] MEDS: LEVOTHYROXINE 150 MCG TABLET PO SCH (09:46)
[2019-08-25] MEDS: ASPIRIN 81 MG EC TAB PO SCH (09:47)
[2019-08-25] MEDS: AMLODIPINE BESYLATE 5 MG TAB PO SCH (09:47)
[2019-08-25 11:35] VITALS: BP 132/64
[2019-08-25 16:43] VITALS: BP 150/67
--- NOTE | 2019-08-25 17:00 | NUR ---
SUMMARY OF DC PLANNING @1400 CALL TO [facility] ONCOLOGY TO [facility] RADIOLOGY [place]- MD/TECH ASK IF PT COULD COME THIS AFTERNOON BEFORE [address] POLANCO, SAID YES OK TO DISCHARGE- F/U NEXT WEEK. RELAYED ORDER TO PRIMARY RN CALL TO DR. RICHARD, [facility] CALL TO FAMILY- THEY SAID, NO, THEY DO NOT WANT TO TAKE PT TODAY, THEY WILL CALL [facility] AND [facility] OTHER ARRANGMENTS FOR HER RADIOLOGY APPT [facility] ASKING FOR INFO RE PLACEMENT AND ASKING FOR HOSP BED AND W/CHAIR [facility] REP AT BEDSIDE W PT AND FMAILY- RPOI REC FOR [facility], [facility] AND [facility] - W Addendum: 08/25/19 at 1948 by JOHAN LAROSE RN CM Amended: Links added.
[2019-08-25 19:17] VITALS: BP 133/57
--- NOTE | 2019-08-25 19:49 | NUR ---
DR POLANCO NEEDS TO SIGN THE DME RX'S IN THE MORNING! PLEASE ALERT MD TO DME SCRIPTS
[2019-08-25] MEDS: PAROXETINE HCL 20 MG TABLET PO SCH (20:56)
[2019-08-25] MEDS: LISINOPRIL 20 MG TABLET PO SCH (20:56)
[2019-08-25] MEDS: ALLOPURINOL 100 MG TABLET PO SCH (20:56)
[2019-08-25 23:49] VITALS: BP 145/59
[2019-08-26] MEDS: DEXAMETHASONE 4 MG TAB PO SCH ×4 (00:05→18:05)
[2019-08-26 03:57] VITALS: BP 151/68
[2019-08-26] MEDS: INSULIN R PO SS1 SQ SCH ×4 (07:30→20:44)
[2019-08-26 08:00] VITALS: BP 126/72
[2019-08-26] MEDS: **HM** VIT D3 5000 UNITS PO SCH (09:00)
[2019-08-26] MEDS: PHENYTOIN SODIUM 100 MG ERCAP PO SCH ×3 (10:34→20:21)
[2019-08-26] MEDS: AMLODIPINE BESYLATE 5 MG TAB PO SCH (10:34)
[2019-08-26] MEDS: ASPIRIN 81 MG EC TAB PO SCH (10:34)
[2019-08-26] MEDS: LEVETIRACETAM 500 MG TABLET PO SCH ×2 (10:34→20:23)
[2019-08-26] MEDS: LEVOTHYROXINE 150 MCG TABLET PO SCH (10:34)
[2019-08-26] MEDS: CARVEDILOL 3.125 MG TABLET PO SCH ×2 (10:35→20:22)
[2019-08-26] MEDS: NYSTATIN 100000 UNIT/ML 5ML UDCUP PO SCH ×4 (10:35→20:20)
[2019-08-26] MEDS: PANTOPRAZOLE SODIUM 40 MG TABLET.DR PO SCH (10:35)
[2019-08-26 12:00] VITALS: BP 149/73
--- NOTE | 2019-08-26 13:55 | NUR ---
patient brother Jamshid called me and wanted me to call report to one of the directors at [facility] ; i did call the number i was giving but there was no answer so I left a message with my number
--- NOTE | 2019-08-26 15:56 | NUR ---
[facility] IS CHOICE OF FAMILY DME FORMED SIGNED, FAXED AND W/CHAIR DELIVERED TO HOSPITAL ROOM - STILL PENDING HOSPITAL BED DELIVERY NEXT WEEK. ORDER RECD FROM DR. POLANCO RE HOLDING DC UNTIL TRANSFER TO [facility] CAN HAPPEN. PT HAS RADIOLOGY APPT THURSDAY AFTERNOON ORDER FOR HOME HEALTH- WILL SEND REFERRAL RIGHT NOW
[2019-08-26 16:00] VITALS: BP 146/81
[2019-08-26 19:15] VITALS: BP 150/53
[2019-08-26] MEDS: LISINOPRIL 20 MG TABLET PO SCH (20:21)
[2019-08-26] MEDS: ALLOPURINOL 100 MG TABLET PO SCH (20:22)
[2019-08-26] MEDS: PAROXETINE HCL 20 MG TABLET PO SCH (20:23)
[2019-08-26] MEDS: BISACODYL 5 MG TABLET.DR PO SCH (20:23)
[2019-08-26 23:38] VITALS: BP 138/60
[2019-08-27] MEDS: DEXAMETHASONE 4 MG TAB PO SCH ×4 (01:36→21:05)
[2019-08-27 03:15] VITALS: BP 145/72
[2019-08-27] MEDS: INSULIN R PO SS1 SQ SCH ×4 (06:34→21:00)
[2019-08-27 08:00] VITALS: BP 159/76
[2019-08-27] MEDS: ASPIRIN 81 MG EC TAB PO SCH (08:42)
[2019-08-27] MEDS: PANTOPRAZOLE SODIUM 40 MG TABLET.DR PO SCH (08:43)
[2019-08-27] MEDS: BISACODYL 5 MG TABLET.DR PO SCH ×2 (08:43→21:04)
[2019-08-27] MEDS: PHENYTOIN SODIUM 100 MG ERCAP PO SCH ×3 (08:43→21:05)
[2019-08-27] MEDS: AMLODIPINE BESYLATE 5 MG TAB PO SCH (08:43)
[2019-08-27] MEDS: LEVETIRACETAM 500 MG TABLET PO SCH ×2 (08:43→21:04)
[2019-08-27] MEDS: LEVOTHYROXINE 150 MCG TABLET PO SCH (08:43)
[2019-08-27] MEDS: CARVEDILOL 3.125 MG TABLET PO SCH ×2 (08:44→21:04)
[2019-08-27] MEDS: **HM** VIT D3 5000 UNITS PO SCH (08:45)
[2019-08-27] MEDS: NYSTATIN 100000 UNIT/ML 5ML UDCUP PO SCH ×4 (08:45→21:04)
[2019-08-27 11:00] VITALS: BP 135/58
[2019-08-27 16:00] VITALS: BP 140/66
[2019-08-27 19:40] VITALS: BP 134/56
[2019-08-27] MEDS: PAROXETINE HCL 20 MG TABLET PO SCH (21:05)
[2019-08-27] MEDS: LISINOPRIL 20 MG TABLET PO SCH (21:05)
[2019-08-27] MEDS: ALLOPURINOL 100 MG TABLET PO SCH (21:05)
[2019-08-27] MEDS: GUAIFENESIN/DEXTROMETHORPHAN 1 EACH TAB.SR.12H PO PRN (21:05)
[2019-08-27 23:45] VITALS: BP 155/68
[2019-08-28 03:44] VITALS: BP 139/71
[2019-08-28] MEDS: INSULIN R PO SS1 SQ SCH ×4 (05:46→21:00)
--- NOTE | 2019-08-28 06:35 | NUR ---
MD ROUNDS DR POLANCO HERE. UPDATED ON DISCHARGE PLANS PER SHIFT REPORT WILL WAIT FOR THURSDAY TO HEAR ABOUT ACCEPTANCE FROM [facility] AND .
[2019-08-28 07:30] VITALS: BP 134/52
[2019-08-28] MEDS: LEVETIRACETAM 500 MG TABLET PO SCH ×2 (08:13→21:00)
[2019-08-28] MEDS: ASPIRIN 81 MG EC TAB PO SCH (08:13)
[2019-08-28] MEDS: DEXAMETHASONE 4 MG TAB PO SCH ×3 (08:13→21:02)
[2019-08-28] MEDS: CARVEDILOL 3.125 MG TABLET PO SCH ×2 (08:14→21:01)
[2019-08-28] MEDS: LEVOTHYROXINE 150 MCG TABLET PO SCH (08:14)
[2019-08-28] MEDS: PHENYTOIN SODIUM 100 MG ERCAP PO SCH ×3 (08:14→21:02)
[2019-08-28] MEDS: AMLODIPINE BESYLATE 5 MG TAB PO SCH (08:14)
[2019-08-28] MEDS: **HM** VIT D3 5000 UNITS PO SCH (08:14)
[2019-08-28] MEDS: BISACODYL 5 MG TABLET.DR PO SCH ×2 (08:14→21:02)
[2019-08-28] MEDS: PANTOPRAZOLE SODIUM 40 MG TABLET.DR PO SCH (08:14)
[2019-08-28] MEDS: NYSTATIN 100000 UNIT/ML 5ML UDCUP PO SCH ×4 (08:14→21:00)
[2019-08-28] MEDS: GUAIFENESIN/DEXTROMETHORPHAN 1 EACH TAB.SR.12H PO PRN ×2 (08:31→22:37)
[2019-08-28 11:00] VITALS: BP 103/57
[2019-08-28 16:00] VITALS: BP 121/54
[2019-08-28 19:10] VITALS: BP 146/70
[2019-08-28] MEDS: PAROXETINE HCL 20 MG TABLET PO SCH (21:00)
[2019-08-28] MEDS: LISINOPRIL 20 MG TABLET PO SCH (21:01)
[2019-08-28] MEDS: ALLOPURINOL 100 MG TABLET PO SCH (21:01)
[2019-08-28 23:25] VITALS: BP 124/57
[2019-08-29 03:15] VITALS: BP 160/68
[2019-08-29] MEDS: INSULIN R PO SS1 SQ SCH (06:11)
[2019-08-29] MEDS ORDERED: LACTULOSE 20 GM/30 ML UDCUP PO PRN (07:00)
[2019-08-29 07:45] VITALS: BP 131/53
[2019-08-29] MEDS: PANTOPRAZOLE SODIUM 40 MG TABLET.DR PO SCH (08:43)
[2019-08-29] MEDS: LEVETIRACETAM 500 MG TABLET PO SCH (08:43)
[2019-08-29] MEDS: LEVOTHYROXINE 150 MCG TABLET PO SCH (08:43)
[2019-08-29] MEDS: BISACODYL 5 MG TABLET.DR PO SCH (08:43)
[2019-08-29] MEDS: CARVEDILOL 3.125 MG TABLET PO SCH (08:43)
[2019-08-29] MEDS: ASPIRIN 81 MG EC TAB PO SCH (08:43)
[2019-08-29] MEDS: AMLODIPINE BESYLATE 5 MG TAB PO SCH (08:44)
[2019-08-29] MEDS: NYSTATIN 100000 UNIT/ML 5ML UDCUP PO SCH (08:49)
[2019-08-29] MEDS: DEXAMETHASONE 4 MG TAB PO SCH (08:49)
[2019-08-29] MEDS: PHENYTOIN SODIUM 100 MG ERCAP PO SCH (08:49)
[2019-08-29] MEDS: **HM** VIT D3 5000 UNITS PO SCH (08:51)
--- NOTE | 2019-08-29 11:00 | NUR ---
CM Note: [facility] acceptance Spoke to Carol hernandez/[facility]. pt has acceptance. safe to dc via private car. primary nurse aware, to give report once pt ready to DC. CM to cont to follow up.
[2019-08-29 11:01] VITALS: BP 121/56
--- NOTE | 2019-08-31 08:00 | NUR ---
Late Entry for 08/29/19 1315 Pt signed discharge instructions, son stated he already filled prescriptions since the prescriptions were already handed to him since Thursday. Report was called in to Nurse at [facility]
== END 2019-08-29 13:15 | disposition home or self-care (01) | DRG 54 ==
LOC: EDH 13:48 → EDHIP 16:21 → 4BH 17:38
PROVIDERS: ADMIT Internal Medicine; ATTEND Internal Medicine
DX: C79.31 Secondary malignant neoplasm of brain (principal); G93.6 Cerebral edema; B37.0 Candidal stomatitis; G40.909 Epilepsy, unspecified, not intractable, without status epilepticus; C73 Malignant neoplasm of thyroid gland; E11.9 Type 2 diabetes mellitus without complications; E78.5 Hyperlipidemia, unspecified; I10 Essential (primary) hypertension; I25.10 Atherosclerotic heart disease of native coronary artery without angina pectoris
CPT/HCPCS: 36415; 70450; 70553; 71045; 80053; 81003; 82150; 82550; 82948; 83605; 83690; 83880; 84484; 85025; 85027; 85610; 85730; 87040; 93005; 97039; A9579; G0378; J1100; J1815; J2405; J8540; Q2009